=== PATIENT | male | born 1985 ===

== ENCOUNTER 2016-03-05 20:25 | Emergency (ER) | payer BC, OTHER ==
[~2016-03-05] VITALS: Ht 177.8 cm; Wt 77.8 kg
[2016-03-05 20:30] VITALS: TEMP 36.9; Ht 177.8 cm; Wt 77.8 kg
--- NOTE | 2016-03-05 21:30 | DIAGNOSTIC IMAGING REPORT ---
LEFT SHOULDER MIN 2 VIEWS ROUTINE CLINICAL HISTORY: Dislocation status post reduction COMPARISON: None. DISCUSSION: 3 views are provided for interpretation. No fractures or dislocations are visualized. IMPRESSION: No fractures or dislocations identified. Electronically signed by: Mejia Cruz M.D. 03/05/2016 9:28 PM Dictated Date/Time: 03/05/2016 9:28 PM
--- NOTE | 2016-03-05 21:48 | EMERGENCY ROOM VISIT NOTE ---
History First contact with patient: 20:33 Chief Complaint: SHOULDER DISLOCATION Stated Complaint: DISLOCATED SHOULDER History of Present Illness The patient is a 31 year old male who presents to the Emergency Room with complaints of dislocation of his left shoulder. The patient states that he reached up to put on his jacket and felt his left shoulder dislocate. The patient has a history of frequent dislocations and has had to have it reduced before. He has seen an orthopedic surgeon in [place], who recommended physical therapy or surgery. The patient states that he was not able to go to physical therapy regularly. He has not followed up with an orthopedic provider in the [place]. He denies any trauma to the shoulder. He rates his current discomfort a 4/10. He denies any numbness or weakness. Review of Systems A complete 6 point review of systems was reviewed with the patient with pertinent positives and negatives as per history of present illness. All else were negative. Social History Smoking Status: Current Every Day Smoker Current/Historical Medications No Active Prescriptions or Reported Meds Allergies Coded Allergies: No Known Allergies (Unverified , 03/05/16) Physical Exam Vital Signs Date Time Temp Pulse Resp B/P Pulse Ox O2 Delivery O2 Flow Rate FiO2 03/05/16 21:56 83 18 132/76 98 03/05/16 20:30 36.9 67 16 157/101 99 Room Air Physical Exam VITALS: Vitals are noted on the nurse's note and reviewed by myself. Vital signs stable. GENERAL: This is a 31-year-old male, in no acute distress, nondiaphoretic, well- developed well-nourished. SKIN: Capillary reflex less than 2 seconds. HEART: Regular rate and rhythm without murmurs gallops or rubs. LUNGS: Clear to auscultation bilaterally without wheezes, rales or rhonchi. MUSCULOSKELETAL: There is an obvious deformity of the left shoulder and the humeral head is palpable anteriorly. Patient has normal range of motion of the left shoulder. Radial pulse is 2+. NEURO: Alert and oriented to person place and time. Normal sensation to sharp and light touch. Medical Decision & Procedures ER Provider Diagnostic Interpretation: LEFT SHOULDER MIN 2 VIEWS ROUTINE DISCUSSION: 3 views are provided for interpretation. No fractures or dislocations are visualized. IMPRESSION: No fractures or dislocations identified. Medical Decision Differential diagnosis includes dislocation, fracture, contusion, sprain, among others. The patient was evaluated as above. Clinically, he appears to have a shoulder dislocation. He does have a history of shoulder dislocations. There was no trauma to the shoulder. The patient was laid prone on the bed. His left arm was flexed at 90 and supinated. I applied gentle downward traction and slight external rotation and the shoulder was easily reduced. The patient then had full range of motion of the shoulder but did have some continued pain. A postreduction x-ray was performed and showed normal anatomical alignment of the shoulder. The patient already has a sling. He was given information for orthopedic follow-up. The patient verbalized his understanding of my assessment and treatment plan and was discharged home in good condition. Impression Primary Impression: Dislocation of left shoulder joint Departure Information Dispostion Home / Self-Care Condition GOOD Prescriptions No Active Prescriptions or Reported Meds Referrals No Doctor, Assigned (PCP) Misael Ibanez D.O. Patient Instructions A Signature Page, [employer] Additional Instructions Wear the sling for the next 2-3 days or as needed. Follow-up with orthopedics for further evaluation of your shoulder dislocations.
[2016-03-05 21:56] VITALS: BP 132/76; PULSE 83; O2SAT 98
== END 2016-03-05 21:55 | disposition home or self-care (01) ==
LOC: C.EDB 20:29 → C.EDD 21:55
DX: M24.412 Recurrent dislocation, left shoulder (principal); F17.200 Nicotine dependence, unspecified, uncomplicated